=== PATIENT | female | born 1990 ===

== ENCOUNTER 2017-10-09 23:17 | Emergency (ER) | payer MEDICAID ==
[2017-10-09 23:36] VITALS: BP 117/73; PULSE 98; TEMP 97.9; O2SAT 98
--- NOTE | 2017-10-10 00:10 | C.PDOC ---
History Of Present Illness 26 year old female presents to the ER for a complaint of a sore throat, cough, and body aches for the past 2 days. Denies sick contact, recent travel, abdominal pain, or vomiting. Pt states she's 35 week and was not sure of what to take which prompted this visit. Time Seen by Provider: 10/09/17 23:49 Chief Complaint (Nursing): Flu-like Symptoms History Per: Patient History/Exam Limitations: no limitations Onset/Duration Of Symptoms: Days Current Symptoms Are (Timing): Still Present Location Of Pain: None Sick Contacts (Context): None Associated Symptoms: Sore Throat, Cough, Myalgias Ear Symptoms: Bilateral: None Recent travel outside of the [place]: No Past Medical History Reviewed: Historical Data, Nursing Documentation, Vital Signs Vital Signs: Last Vital Signs Temp 97.9 F 10/09/17 23:29 Pulse 98 H 10/09/17 23:29 Resp 20 10/10/17 00:30 BP 117/73 10/09/17 23:29 Pulse Ox 98 10/10/17 01:26 - Medical History PMH: Asthma Surgical History: No Surg Hx Family History: States: Unknown Family Hx - Social History Hx Alcohol Use: No Hx Substance Use: No - Immunization History Hx Tetanus Toxoid Vaccination: Yes Hx Influenza Vaccination: Yes Review Of Systems Constitutional: Negative for: Fever, Chills ENT: Positive for: Throat Pain Respiratory: Positive for: Cough Musculoskeletal: Positive for: Other (Body aches) Physical Exam - Physical Exam Appears: Non-toxic, No Acute Distress Skin: Normal Color, Warm, Dry Head: Atraumatic, Normacephalic Eye(s): bilateral: Normal Inspection Ear(s): Bilateral: Normal Oral Mucosa: Moist Throat: Normal, No Erythema, No Exudate Neck: Normal, Supple Chest: Symmetrical, No Tenderness Cardiovascular: Rhythm Regular, No Murmur Respiratory: Normal Breath Sounds, No Rales, No Rhonchi, No Wheezing Gastrointestinal/Abdominal: Soft, No Tenderness, Other (Gravid) Neurological/Psych: Oriented x3, Normal Speech ED Course And Treatment O2 Sat by Pulse Oximetry: 98 (Room air) Pulse Ox Interpretation: Normal Progress Note: Patient is resting comfortably in the ER in no distress; instructed to take tylenol as needed, drink fluids and follow up with PMD or return to the ER if symptoms worsen. Disposition Counseled Patient/Family Regarding: Diagnosis, Need For Followup, Rx Given - Disposition Disposition: HOME/ ROUTINE Disposition Time: 00:03 Condition: STABLE Additional Instructions: Please follow up with PMD Increase PO fluids Take tylenol extra strength 2 tabs every 6h for pain or fever Use benadryl OTC 25 mg as needed for congestion Gargle with warm salt water May use cough drops Return to ER if worse Instructions: Viral Syndrome (ED) Forms: [employer] (Lao) - Clinical Impression Clinical Impression: Viral illness, - PA / [employer] FORMULATOR / Resident Statement MD/DO has reviewed & agrees with the documentation as recorded. - Scribe Statement The provider has reviewed the documentation as recorded by the Scribe oBbo Iverson All medical record entries made by the Lenardibjuan carlos were at my direction and personally dictated by me. I have reviewed the chart and agree that the record accurately reflects my personal performance of the history, physical exam, medical decision making, and the department course for this patient. I have also personally directed, reviewed, and agree with the discharge instructions and disposition.
[2017-10-10 00:38] VITALS: RESP 20
== END 2017-10-10 00:30 | disposition home or self-care (01) ==
LOC: C.ER 23:17
DX: O98.513 Other viral diseases complicating pregnancy, third trimester (principal); Z3A.35 35 weeks gestation of pregnancy